=== PATIENT | male | born 1985 | race Two or more races ===

== ENCOUNTER 2019-12-26 20:36 | Emergency (ER) | payer SELFPAY ==
[~2019-12-26] VITALS: Ht 175.3 cm; Wt 81.8 kg
[2019-12-26 22:05] LABS: BILIRUBIN,URINE NEGATIVE (NEG); CLARITY,URINE CLOUDY; COLOR,URINE YELLOW; NITRITE,URINE NEGATIVE (NEG); PH,URINE 7.5 (<5.0-8.0); PROTEIN,URINE 30 mg/dL (NEG-TRACE)
[2019-12-26 22:06] LABS: BASO # 0.1 x10^3/uL (0.0-0.2); BASO % 1 % (0-3); EOS # 0.2 x10^3/uL (0.0-0.7); EOS % 3 % (0-3); HEMATOCRIT 48.9 % (39.0-53.0); LYMPH # 2.6 x10^3/uL (1.0-4.8); LYMPH % 37 % (24-48); MEAN CORPUSCULAR HEMOGLOBIN 30 pg (25-35); MEAN CORPUSCULAR HGB CONC 35 g/dL (31-37); MEAN CORPUSCULAR VOLUME 86 fL (79-100); MONO # 0.4 x10^3/uL (0.0-1.1); MONO % 6 % (0-9); NEUT # 3.6 x10^3/uL (1.8-7.7); NEUT % 52 % (31-73); PLATELET COUNT 275 x10^3/uL (140-400); RED BLOOD COUNT 5.72 x10^6/uL (4.30-5.70); RED CELL DISTRIBUTION WIDTH 13.3 % (11.5-14.5); WHITE BLOOD COUNT 6.9 x10^3/uL (4.0-11.0)
[2019-12-26 22:13] LABS: AMPHETAMINE/METHAMPHETAMINE NEG (NEG); BARBITURATES NEG (NEG); BENZODIAZEPINES NEG (NEG); CANNABINOIDS NEG (NEG); COCAINE POS (NEG); METHADONE NEG (NEG); OPIATES NEG (NEG); PHENCYCLIDINE NEG (NEG)
[2019-12-26 22:15] LABS: AMORPHOUS SEDIMENT,UR PRESENT /HPF; BACTERIA,URINE FEW /HPF (0-FEW); SQUAMOUS EPITHELIAL CELL,UR FEW /LPF
[2019-12-26 22:15] LABS: CALCIUM 8.1 mg/dL (8.5-10.1); CREATININE 0.9 mg/dL (0.7-1.3); POTASSIUM 3.5 mmol/L (3.5-5.1)
[2019-12-26] MEDS ORDERED: THIAMINE 100 MG TABLET. PO ONE (22:15)
[2019-12-26] MEDS ORDERED: MULTIVIT INFUSN,ADULT 4,VIT K 10 ML, FOLIC ACID INJ 1 MG in IV NORMAL SALINE 1000ML BAG... IV ONE (22:15)
[2019-12-26 22:21] LABS: ALBUMIN/GLOBULIN RATIO 1.2 (1.0-1.7); MAGNESIUM 2.1 mg/dL (1.8-2.4); TOTAL BILIRUBIN 0.8 mg/dL (0.2-1.0); TOTAL PROTEIN 7.4 g/dL (6.4-8.2)
--- NOTE | 2019-12-26 22:45 | PHYS DOC ---
Past Medical History Past Medical History: Alcoholism Past Surgical History: No Surgical History Smoking Status: Never Smoker Alcohol Use: Heavy General Adult EDM: Chief Complaint: ALCOHOL INTOXICATION HPI: HPI: Patient is a 34-year-old male who presents to the emergency department tonight stating he is highly intoxicated after drinking 2 bottles of tequila today. He states he is doing this because he is depressed and has contemplated harming himself. He states he will drink himself to . He denies any other illicit drug. He will not elaborate to me on exactly why he is so depressed. [] Review of Systems: Review of Systems: Constitutional: Denies fever or chills. [] Eyes: Denies change in visual acuity. [] HENT: Denies nasal congestion or sore throat. [] Respiratory: Denies cough or shortness of breath. [] Cardiovascular: Denies chest pain or edema. [] GI: Denies abdominal pain, nausea, vomiting, bloody stools or diarrhea. [] : Denies dysuria. [] Musculoskeletal: Denies back pain or joint pain. [] Integument: Denies rash. [] Neurologic: Denies headache, focal weakness or sensory changes. [] Endocrine: Denies polyuria or polydipsia. [] Lymphatic: Denies swollen glands. [] Psychiatric: Reports depression [] Heart Score: Risk Factors: Risk Factors: DM, Current or recent (<one month) smoker, HTN, HLP, family history of CAD, obesity. Risk Scores: Score 0 - 3: 2.5% MACE over next 6 weeks - Discharge Home Score 4 - 6: 20.3% MACE over next 6 weeks - Admit for Clinical Observation Score 7 - 10: 72.7% MACE over next 6 weeks - Early Invasive Strategies Current Medications: Current Medications Medications (Trade) Dose Ordered Sig/Karen Start Time Stop Time Status Last Admin Dose Admin Multivitamins 10 ml/Folic Acid 1 mg/Sodium Chloride 1,010.2 ml @ 999.099 mls/hr 1X ONCE 12/26/19 22:15 12/26/19 23:15 12/26/19 22:24 999.099 MLS/HR Thiamine Mononitrate (Vitamin B-1) 100 mg 1X ONCE 12/26/19 22:15 12/26/19 22:16 DC 12/26/19 22:24 100 MG Allergies: Allergies: Allergies Coded Allergies Type Severity Reaction Last Updated Verified No Known Drug Allergies 12/26/19 No Physical Exam: PE: Constitutional: Well developed, well nourished, highly intoxicated [] HENT: Normocephalic, atraumatic, bilateral external ears normal, oropharynx moist, no oral exudates, nose normal. [] Eyes: PERRLA, EOMI, conjunctiva normal, no discharge. [] Neck: Normal range of motion, no tenderness, supple, no stridor. [] Cardiovascular:Heart rate regular rhythm, no murmur [] Lungs & Thorax: Bilateral breath sounds clear to auscultation [] Abdomen: Bowel sounds normal, soft, no tenderness, no masses, no pulsatile masses. [] Skin: Warm, dry, no erythema, no rash. [] Back: No tenderness, no CVA tenderness. [] Extremities: No tenderness, no cyanosis, no clubbing, ROM intact, no edema. [] Neurologic: Alert and oriented X 3, normal motor function, normal sensory function, no focal deficits noted. [] Psychologic: Depressed affect. [] Current Patient Data: Labs: Laboratory Tests Test 12/26/19 21:05 12/26/19 21:45 White Blood Count 6.9 x10^3/uL (4.0-11.0) Red Blood Count 5.72 x10^6/uL (4.30-5.70) H Hemoglobin 17.0 g/dL (13.0-17.5) Hematocrit 48.9 % (39.0-53.0) Mean Corpuscular Volume 86 fL (79-100) Mean Corpuscular Hemoglobin 30 pg (25-35) Mean Corpuscular Hemoglobin Concent 35 g/dL (31-37) Red Cell Distribution Width 13.3 % (11.5-14.5) Platelet Count 275 x10^3/uL (140-400) Neutrophils (%) (Auto) 52 % (31-73) Lymphocytes (%) (Auto) 37 % (24-48) Monocytes (%) (Auto) 6 % (0-9) Eosinophils (%) (Auto) 3 % (0-3) Basophils (%) (Auto) 1 % (0-3) Neutrophils # (Auto) 3.6 x10^3/uL (1.8-7.7) Lymphocytes # (Auto) 2.6 x10^3/uL (1.0-4.8) Monocytes # (Auto) 0.4 x10^3/uL (0.0-1.1) Eosinophils # (Auto) 0.2 x10^3/uL (0.0-0.7) Basophils # (Auto) 0.1 x10^3/uL (0.0-0.2) Sodium Level 144 mmol/L (136-145) Potassium Level 3.5 mmol/L (3.5-5.1) Chloride Level 101 mmol/L (98-107) Carbon Dioxide Level 23 mmol/L (21-32) Anion Gap 20 (6-14) H Blood Urea Nitrogen 12 mg/dL (8-26) Creatinine 0.9 mg/dL (0.7-1.3) Estimated GFR (Cockcroft-Gault) 96.0 BUN/Creatinine Ratio 13 (6-20) Glucose Level 85 mg/dL (70-99) Calcium Level 8.1 mg/dL (8.5-10.1) L Magnesium Level 2.1 mg/dL (1.8-2.4) Total Bilirubin 0.8 mg/dL (0.2-1.0) Aspartate Amino Transferase (AST) 32 U/L (15-37) Alanine Aminotransferase (ALT) 36 U/L (16-63) Alkaline Phosphatase 80 U/L (46-116) Total Protein 7.4 g/dL (6.4-8.2) Albumin 4.0 g/dL (3.4-5.0) Albumin/Globulin Ratio 1.2 (1.0-1.7) Ethyl Alcohol Level 249 mg/dL (0-10) H Urine Collection Type Void Urine Color Yellow Urine Clarity Cloudy Urine pH 7.5 (<5.0-8.0) Urine Specific [place] 1.020 (1.000-1.030) Urine Protein 30 mg/dL (NEG-TRACE) Urine Glucose (UA) Negative mg/dL (NEG) Urine Ketones (Stick) Trace mg/dL (NEG) Urine Blood Negative (NEG) Urine Nitrite Negative (NEG) Urine Bilirubin Negative (NEG) Urine Urobilinogen Dipstick 1.0 mg/dL (0.2 mg/dL) Urine Leukocyte Esterase Negative (NEG) Urine RBC 1-2 /HPF (0-2) Urine WBC 1-4 /HPF (0-4) Urine Squamous Epithelial Cells Few /LPF Urine Amorphous Sediment Present /HPF Urine Bacteria Few /HPF (0-FEW) Urine Mucus Slight /LPF Urine Opiates Screen Neg (NEG) Urine Methadone Screen Neg (NEG) Urine Barbiturates Neg (NEG) Urine Phencyclidine Screen Neg (NEG) Urine Amphetamine/Methamphetamine Neg (NEG) Urine Benzodiazepines Screen Neg (NEG) Urine Cocaine Screen Pos (NEG) Urine Cannabinoids Screen Neg (NEG) Urine Ethyl Alcohol Pos (NEG) Laboratory Tests 12/26/19 21:05 Laboratory Tests 12/26/19 21:05 Vital Signs: Vital Signs Date Time Temp Pulse Resp B/P (MAP) Pulse Ox O2 Delivery O2 Flow Rate FiO2 12/26/19 20:53 98.4 97 20 124/90 (101) 98 Room Air 98.4 EKG: EKG: [] Radiology/Procedures: Radiology/Procedures: [] Course & Med Decision Making: Course & Med Decision Making Pertinent Labs and Imaging studies reviewed. (See chart for details) [ED course: Evaluation reveals a 34-year-old intoxicated male who was depressed. Psychiatric assessment team evaluated him and did not believe he was at risk for suicide. Will give him some out patient resources] Yoel Disclaimer: Yoel Disclaimer: This electronic medical record was generated, in whole or in part, using a voice recognition dictation system. Departure Departure Impression: Primary Impression: Alcohol intoxication Qualified Codes: F10.920 - Alcohol use, unspecified with intoxication, uncomplicated Disposition: 01 HOME, SELF-CARE Condition: IMPROVED Referrals: NO PCP (PCP) Patient Instructions: Alcohol Intoxication, Alcohol Problems Additional Instructions: Return to the emergency department with any new or concerning symptoms JOEL HAMLIN DO December 26, 2019 22:45
[2019-12-27 00:17] VITALS: BP 127/87
== END 2019-12-27 00:35 | disposition home or self-care (01) ==
LOC: ER 20:36
DX: F10.229 Alcohol dependence with intoxication, unspecified (principal); Y90.8 Blood alcohol level of 240 mg/100 ml or more; F32.9 Major depressive disorder, single episode, unspecified
CPT/HCPCS: 36415; 80053; 80307; 81001; 83735; 85025; 96365; 96366; 99285; G0480; J3490; J7030

== ENCOUNTER 2020-03-19 02:45 | Inpatient (IN) | payer SELFPAY ==
[~2020-03-19] VITALS: Ht 180.3 cm; Wt 79.2 kg
[2020-03-19] MEDS ORDERED: KETOROLAC 30 MG/ML VIAL. ONE (03:37)
[2020-03-19] MEDS ORDERED: METOCLOPRAMIDE HCL 10 MG/2 ML VIAL. ONE (03:37)
[2020-03-19] MEDS ORDERED: ONDANSETRON PF 4 MG/2 ML VIAL. IV PRN (06:30)
[2020-03-19] MEDS ORDERED: MULTIVIT INFUSN,ADULT 4,VIT K 10 ML, THIAMINE INJ 100 MG, FOLIC ACID INJ 1 MG in IV NOR... IV ONE (07:00)
[2020-03-19] MEDS ORDERED: SODIUM BICARB ADULT 8.4% 50 MEQ/50 ML DISP.SYRIN. ONE (07:00)
[2020-03-19 07:02] LABS: BASE EXCESS ABG -17 mmol/L (-3-3); HCO3 ABG 9 mmol/L (21-28); PCO2 ABG 25 mmHg (35-46); PO2 ABG 91 mmHg (85-108); SAT O2 ABG 97 % (92-99)
[2020-03-19] MEDS ORDERED: SODIUM BICARB ADULT 8.4% 50 MEQ/50 ML DISP.SYRIN. IV ONE (07:30)
[2020-03-19 07:56] VITALS: BP 124/85
[2020-03-19 09:47] LABS: CALCIUM 7.5 mg/dL (8.5-10.1); CREATININE 1.2 mg/dL (0.7-1.3); GFR 68.9
--- NOTE | 2020-03-19 09:56 | NUR ---
SS following for discharge planning. SS reviewed pt chart and discussed with pt RN. Pt is from home and is currently on room air. PAT team referral made for ETOH. Pt is self pay. SS will continue to follow for discharge planning.
[2020-03-19 10:51] LABS: TOTAL PROTEIN 9.4 g/dL (6.4-8.2)
[2020-03-19 10:52] LABS: ALBUMIN 4.8 g/dL (3.4-5.0); CREATININE 1.6 mg/dL (0.7-1.3); GFR 49.4; POTASSIUM 4.5 mmol/L (3.5-5.1); TOTAL BILIRUBIN 0.2 mg/dL (0.2-1.0)
[2020-03-19 10:54] LABS: DIRECT BILIRUBIN 0.1 mg/dL (0.0-0.2)
[2020-03-19 11:00] VITALS: BP 116/63
[2020-03-19 11:43] LABS: BASO % 0 % (0-3); EOS % 0 % (0-3); HEMATOCRIT 54.5 % (39.0-53.0); HEMOGLOBIN 17.7 g/dL (13.0-17.5); LYMPH # 0.9 x10^3/uL (1.0-4.8); LYMPH % 5 % (24-48); MEAN CORPUSCULAR HEMOGLOBIN 30 pg (25-35); MEAN CORPUSCULAR HGB CONC 33 g/dL (31-37); MEAN CORPUSCULAR VOLUME 92 fL (79-100); MONO # 1.1 x10^3/uL (0.0-1.1); MONO % 5 % (0-9); NEUT # 18.6 x10^3/uL (1.8-7.7); NEUT % 90 % (31-73); PLATELET COUNT 414 x10^3/uL (140-400); RED BLOOD COUNT 5.91 x10^6/uL (4.30-5.70); RED CELL DISTRIBUTION WIDTH 14.9 % (11.5-14.5); WHITE BLOOD COUNT 20.6 x10^3/uL (4.0-11.0)
[2020-03-19 15:00] VITALS: BP 120/62
--- NOTE | 2020-03-19 15:00 | PDOC1 ---
History and Physical Date of Admission Date of Admission 03/19/2020 Identification/Chief Complaint Chief Complaint I drank too much Source Source: Chart review, Patient History of Present Illness History of Present Illness Patient is a 34-year-old gentleman that decided to have a democrat prior to coming to the emergency department and unfortunately drank too much alcohol. The patient denies drinking excessively on a regular basis but this time around apparently in order to celebrate his new apartment he drank 2 bottles of tequila. The patient after the ingestion felt quite sick and ill and just started vomiting on several occasions no blood no hematemesis gastric content only and the patient due to inability to have proper oral intake decided to come to the emergency department for the uncontrollable emesis. Laboratory data was quite abnormal reason why we were asked to admit the patient due to any metabolic acidosis with high anion gap found on his chemistry. The patient was started on IV fluids he did not have hemodynamic instability throughout his hospital stay in the ER documentation there was a report that he was doing this because he is depressed and had contemplated harming himself nevertheless the patient was asking this is not the case. The patient denies suicidal ideation no suicidal intent and nursing staff was at bedside with me when I was interviewing the patient as well. He is in good spirits and hoping to be dismissed later in the day No headache no blurred vision no dysphagia odynophagia no chest pain no neurological deficits were exhibited no urinary symptoms no abdominal pain no other complaints voiced Past Medical History Past Medical History No past medical history Past Surgical History Past Surgical History No past surgical history Family History Family History: No Significant, Other (Reviewed and found negative noncontributory) Social History Smoke: No ALCOHOL: occassional Drugs: None Current Medications Current Medications Current Medications Medications (Trade) Dose Ordered Sig/Karen Start Time Stop Time Status Last Admin Dose Admin Multivitamins 10 ml/Thiamine HCl 100 mg/Folic Acid 1 mg/Sodium Chloride 1,011.2 ml @ 150 mls/ hr 1X ONCE 03/19/20 07:00 03/19/20 13:44 DC 03/19/20 06:38 150 MLS/HR Ondansetron HCl (Zofran) 4 mg PRN Q8HRS PRN 03/19/20 06:30 03/20/20 06:29 03/19/20 09:44 4 MG Sodium Bicarbonate (Sodium Bicarb Adult 8.4% Syr) 50 meq 1X ONCE 03/19/20 07:30 03/19/20 07:31 DC 03/19/20 07:03 50 MEQ Allergies Allergies Allergies Coded Allergies Type Severity Reaction Last Updated Verified No Known Drug Allergies 12/26/19 No ROS Review of System CONSTITUTIONAL: No fever or chills EYES: No recent changes SKIN: No rash or itching CARDIOVASCULAR: No chest pain, syncope, palpitations, or edema RESPIRATORY: No SOB or cough GASTROINTESTINAL: No nausea, vomiting or abdominal pain NEUROLOGICAL: No headaches or weakness ENDOCRINE: No cold or heat intolerance GENITOURINARY: No urgency or frequency of urination MUSCULOSKELETAL: No back pain or joint pain LYMPHATICS: No enlarged lymph nodes PSYCHIATRIC: No anxiety or depression Physical Exam Physical Exam GEN.: No apparent distress. Alert and oriented. HEENT: Head is normocephalic, atraumatic NECK: Supple. LUNGS: Clear to auscultation. HEART: RRR, S1, S2 present. Peripheral pulses intact ABDOMEN: Soft, nontender. Positive bowel sounds. EXTREMITIES: Without any cyanosis. NEUROLOGIC: Normal speech, normal tone PSYCHIATRIC: Normal affect, normal mood. SKIN: No ulcerations Vitals Vitals Vital Signs Date Time Temp Pulse Resp B/P (MAP) Pulse Ox O2 Delivery O2 Flow Rate FiO2 03/19/20 11:00 98.4 114 20 116/63 (80) 98 Room Air 98.4 Labs Labs Laboratory Tests Test 03/19/20 03:30 03/19/20 06:11 03/19/20 08:45 White Blood Count 20.6 x10^3/uL (4.0-11.0) Red Blood Count 5.91 x10^6/uL (4.30-5.70) Hemoglobin 17.7 g/dL (13.0-17.5) Hematocrit 54.5 % (39.0-53.0) Mean Corpuscular Volume 92 fL (79-100) Mean Corpuscular Hemoglobin 30 pg (25-35) Mean Corpuscular Hemoglobin Concent 33 g/dL (31-37) Red Cell Distribution Width 14.9 % (11.5-14.5) Platelet Count 414 x10^3/uL (140-400) Neutrophils (%) (Auto) 90 % (31-73) Lymphocytes (%) (Auto) 5 % (24-48) Monocytes (%) (Auto) 5 % (0-9) Eosinophils (%) (Auto) 0 % (0-3) Basophils (%) (Auto) 0 % (0-3) Neutrophils # (Auto) 18.6 x10^3/uL (1.8-7.7) Lymphocytes # (Auto) 0.9 x10^3/uL (1.0-4.8) Monocytes # (Auto) 1.1 x10^3/uL (0.0-1.1) Eosinophils # (Auto) 0.0 x10^3/uL (0.0-0.7) Basophils # (Auto) 0.0 x10^3/uL (0.0-0.2) Sodium Level 142 mmol/L (136-145) 135 mmol/L (136-145) Potassium Level 4.5 mmol/L (3.5-5.1) 5.0 mmol/L (3.5-5.1) Chloride Level 100 mmol/L (98-107) 102 mmol/L (98-107) Carbon Dioxide Level 9 mmol/L (21-32) 17 mmol/L (21-32) Anion Gap 33 (6-14) 16 (6-14) Blood Urea Nitrogen 21 mg/dL (8-26) 16 mg/dL (8-26) Creatinine 1.6 mg/dL (0.7-1.3) 1.2 mg/dL (0.7-1.3) Estimated GFR (Cockcroft-Gault) 49.4 68.9 Glucose Level 67 mg/dL (70-99) 179 mg/dL (70-99) Calcium Level 9.0 mg/dL (8.5-10.1) 7.5 mg/dL (8.5-10.1) Total Bilirubin 0.2 mg/dL (0.2-1.0) Direct Bilirubin 0.1 mg/dL (0.0-0.2) Aspartate Amino Transf (AST/SGOT) 39 U/L (15-37) Alanine Aminotransferase (ALT/SGPT) 38 U/L (16-63) Alkaline Phosphatase 102 U/L (46-116) Total Protein 9.4 g/dL (6.4-8.2) Albumin 4.8 g/dL (3.4-5.0) Lipase 41 U/L (73-393) Ethyl Alcohol Level 56 mg/dL (0-10) O2 Saturation 97 % (92-99) Arterial Blood pH 7.19 (7.35-7.45) Arterial Blood pCO2 at Patient Temp 25 mmHg (35-46) Arterial Blood pO2 at Patient Temp 91 mmHg (85-108) Arterial Blood HCO3 9 mmol/L (21-28) Arterial Blood Base Excess -17 mmol/L (-3-3) Laboratory Tests Test 03/19/20 03:30 03/19/20 06:11 03/19/20 08:45 White Blood Count 20.6 x10^3/uL (4.0-11.0) Red Blood Count 5.91 x10^6/uL (4.30-5.70) Hemoglobin 17.7 g/dL (13.0-17.5) Hematocrit 54.5 % (39.0-53.0) Mean Corpuscular Volume 92 fL (79-100) Mean Corpuscular Hemoglobin 30 pg (25-35) Mean Corpuscular Hemoglobin Concent 33 g/dL (31-37) Red Cell Distribution Width 14.9 % (11.5-14.5) Platelet Count 414 x10^3/uL (140-400) Neutrophils (%) (Auto) 90 % (31-73) Lymphocytes (%) (Auto) 5 % (24-48) Monocytes (%) (Auto) 5 % (0-9) Eosinophils (%) (Auto) 0 % (0-3) Basophils (%) (Auto) 0 % (0-3) Neutrophils # (Auto) 18.6 x10^3/uL (1.8-7.7) Lymphocytes # (Auto) 0.9 x10^3/uL (1.0-4.8) Monocytes # (Auto) 1.1 x10^3/uL (0.0-1.1) Eosinophils # (Auto) 0.0 x10^3/uL (0.0-0.7) Basophils # (Auto) 0.0 x10^3/uL (0.0-0.2) Sodium Level 142 mmol/L (136-145) 135 mmol/L (136-145) Potassium Level 4.5 mmol/L (3.5-5.1) 5.0 mmol/L (3.5-5.1) Chloride Level 100 mmol/L (98-107) 102 mmol/L (98-107) Carbon Dioxide Level 9 mmol/L (21-32) 17 mmol/L (21-32) Anion Gap 33 (6-14) 16 (6-14) Blood Urea Nitrogen 21 mg/dL (8-26) 16 mg/dL (8-26) Creatinine 1.6 mg/dL (0.7-1.3) 1.2 mg/dL (0.7-1.3) Estimated GFR (Cockcroft-Gault) 49.4 68.9 Glucose Level 67 mg/dL (70-99) 179 mg/dL (70-99) Calcium Level 9.0 mg/dL (8.5-10.1) 7.5 mg/dL (8.5-10.1) Total Bilirubin 0.2 mg/dL (0.2-1.0) Direct Bilirubin 0.1 mg/dL (0.0-0.2) Aspartate Amino Transf (AST/SGOT) 39 U/L (15-37) Alanine Aminotransferase (ALT/SGPT) 38 U/L (16-63) Alkaline Phosphatase 102 U/L (46-116) Total Protein 9.4 g/dL (6.4-8.2) Albumin 4.8 g/dL (3.4-5.0) Lipase 41 U/L (73-393) Ethyl Alcohol Level 56 mg/dL (0-10) O2 Saturation 97 % (92-99) Arterial Blood pH 7.19 (7.35-7.45) Arterial Blood pCO2 at Patient Temp 25 mmHg (35-46) Arterial Blood pO2 at Patient Temp 91 mmHg (85-108) Arterial Blood HCO3 9 mmol/L (21-28) Arterial Blood Base Excess -17 mmol/L (-3-3) VTE Prophylaxis Ordered VTE Prophylaxis Devices: Yes VTE Pharmacological Prophylaxi: Yes Assessment/Plan Assessment/Plan High anion gap metabolic acidosis Uncontrollable emesis Reactive leukocytosis Moderate dehydration Hyperglycemia which may be reactive Plan For repeat labs prior to dismissal If laboratory data is better he will be discharged later in the day Finish banana bag Encourage oral intake Further recommendations based on the clinical course Justicifation of Admission Dx: Justifications for Admission: Justification of Admission Dx: Yes (Severe electrolyte disturbances) JANNETTE VILLA MD Mar 19, 2020 15:00
[2020-03-19 15:18] LABS: BASO % 0 % (0-3); EOS % 0 % (0-3); HEMATOCRIT 42.3 % (39.0-53.0); HEMOGLOBIN 14.4 g/dL (13.0-17.5); LYMPH # 1.2 x10^3/uL (1.0-4.8); LYMPH % 8 % (24-48); MEAN CORPUSCULAR HEMOGLOBIN 30 pg (25-35); MEAN CORPUSCULAR HGB CONC 34 g/dL (31-37); MEAN CORPUSCULAR VOLUME 88 fL (79-100); MONO # 1.7 x10^3/uL (0.0-1.1); MONO % 12 % (0-9); NEUT # 11.3 x10^3/uL (1.8-7.7); NEUT % 80 % (31-73); PLATELET COUNT 301 x10^3/uL (140-400); RED BLOOD COUNT 4.79 x10^6/uL (4.30-5.70); RED CELL DISTRIBUTION WIDTH 14.2 % (11.5-14.5); WHITE BLOOD COUNT 14.2 x10^3/uL (4.0-11.0)
[2020-03-19 15:31] LABS: CALCIUM 8.4 mg/dL (8.5-10.1); POTASSIUM 4.3 mmol/L (3.5-5.1)
[2020-03-19 19:25] VITALS: BP 126/68
--- NOTE | 2020-03-19 21:00 | PDOC3 ---
Discharge Summary Visit Information Date of Admission: Mar 19, 2020 Date of Discharge: Mar 19, 2020 Admitting Diagnosis Comment: acute alcoholic intoxication metabolic acidosis leukocytosis Final Diagnosis metabolic acidosis resolved acute alcohol intoxication reactive leukocytosis Brief Hospital Course Allergies Allergies Coded Allergies Type Severity Reaction Last Updated Verified No Known Drug Allergies 12/26/19 No Vital Signs Vital Signs Date Time Temp Pulse Resp B/P (MAP) Pulse Ox O2 Delivery O2 Flow Rate FiO2 03/19/20 15:00 98.4 119 20 120/62 (81) 99 Room Air 98.4 Lab Results Laboratory Tests Test 03/19/20 03:30 03/19/20 06:11 03/19/20 08:45 03/19/20 15:10 White Blood Count 20.6 x10^3/uL (4.0-11.0) 14.2 x10^3/uL (4.0-11.0) Red Blood Count 5.91 x10^6/uL (4.30-5.70) 4.79 x10^6/uL (4.30-5.70) Hemoglobin 17.7 g/dL (13.0-17.5) 14.4 g/dL (13.0-17.5) Hematocrit 54.5 % (39.0-53.0) 42.3 % (39.0-53.0) Mean Corpuscular Volume 92 fL (79-100) 88 fL (79-100) Mean Corpuscular Hemoglobin 30 pg (25-35) 30 pg (25-35) Mean Corpuscular Hemoglobin Concent 33 g/dL (31-37) 34 g/dL (31-37) Red Cell Distribution Width 14.9 % (11.5-14.5) 14.2 % (11.5-14.5) Platelet Count 414 x10^3/uL (140-400) 301 x10^3/uL (140-400) Neutrophils (%) (Auto) 90 % (31-73) 80 % (31-73) Lymphocytes (%) (Auto) 5 % (24-48) 8 % (24-48) Monocytes (%) (Auto) 5 % (0-9) 12 % (0-9) Eosinophils (%) (Auto) 0 % (0-3) 0 % (0-3) Basophils (%) (Auto) 0 % (0-3) 0 % (0-3) Neutrophils # (Auto) 18.6 x10^3/uL (1.8-7.7) 11.3 x10^3/uL (1.8-7.7) Lymphocytes # (Auto) 0.9 x10^3/uL (1.0-4.8) 1.2 x10^3/uL (1.0-4.8) Monocytes # (Auto) 1.1 x10^3/uL (0.0-1.1) 1.7 x10^3/uL (0.0-1.1) Eosinophils # (Auto) 0.0 x10^3/uL (0.0-0.7) 0.0 x10^3/uL (0.0-0.7) Basophils # (Auto) 0.0 x10^3/uL (0.0-0.2) 0.0 x10^3/uL (0.0-0.2) Sodium Level 142 mmol/L (136-145) 135 mmol/L (136-145) 137 mmol/L (136-145) Potassium Level 4.5 mmol/L (3.5-5.1) 5.0 mmol/L (3.5-5.1) 4.3 mmol/L (3.5-5.1) Chloride Level 100 mmol/L (98-107) 102 mmol/L (98-107) 103 mmol/L (98-107) Carbon Dioxide Level 9 mmol/L (21-32) 17 mmol/L (21-32) 24 mmol/L (21-32) Anion Gap 33 (6-14) 16 (6-14) 10 (6-14) Blood Urea Nitrogen 21 mg/dL (8-26) 16 mg/dL (8-26) 18 mg/dL (8-26) Creatinine 1.6 mg/dL (0.7-1.3) 1.2 mg/dL (0.7-1.3) 1.0 mg/dL (0.7-1.3) Estimated GFR (Cockcroft-Gault) 49.4 68.9 85.0 Glucose Level 67 mg/dL (70-99) 179 mg/dL (70-99) 143 mg/dL (70-99) Calcium Level 9.0 mg/dL (8.5-10.1) 7.5 mg/dL (8.5-10.1) 8.4 mg/dL (8.5-10.1) Total Bilirubin 0.2 mg/dL (0.2-1.0) Direct Bilirubin 0.1 mg/dL (0.0-0.2) Aspartate Amino Transf (AST/SGOT) 39 U/L (15-37) Alanine Aminotransferase (ALT/SGPT) 38 U/L (16-63) Alkaline Phosphatase 102 U/L (46-116) Total Protein 9.4 g/dL (6.4-8.2) Albumin 4.8 g/dL (3.4-5.0) Lipase 41 U/L (73-393) Ethyl Alcohol Level 56 mg/dL (0-10) O2 Saturation 97 % (92-99) Arterial Blood pH 7.19 (7.35-7.45) Arterial Blood pCO2 at Patient Temp 25 mmHg (35-46) Arterial Blood pO2 at Patient Temp 91 mmHg (85-108) Arterial Blood HCO3 9 mmol/L (21-28) Arterial Blood Base Excess -17 mmol/L (-3-3) Magnesium Level 1.9 mg/dL (1.8-2.4) Laboratory Tests Test 03/19/20 03:30 03/19/20 06:11 03/19/20 08:45 03/19/20 15:10 White Blood Count 20.6 x10^3/uL (4.0-11.0) 14.2 x10^3/uL (4.0-11.0) Red Blood Count 5.91 x10^6/uL (4.30-5.70) 4.79 x10^6/uL (4.30-5.70) Hemoglobin 17.7 g/dL (13.0-17.5) 14.4 g/dL (13.0-17.5) Hematocrit 54.5 % (39.0-53.0) 42.3 % (39.0-53.0) Mean Corpuscular Volume 92 fL (79-100) 88 fL (79-100) Mean Corpuscular Hemoglobin 30 pg (25-35) 30 pg (25-35) Mean Corpuscular Hemoglobin Concent 33 g/dL (31-37) 34 g/dL (31-37) Red Cell Distribution Width 14.9 % (11.5-14.5) 14.2 % (11.5-14.5) Platelet Count 414 x10^3/uL (140-400) 301 x10^3/uL (140-400) Neutrophils (%) (Auto) 90 % (31-73) 80 % (31-73) Lymphocytes (%) (Auto) 5 % (24-48) 8 % (24-48) Monocytes (%) (Auto) 5 % (0-9) 12 % (0-9) Eosinophils (%) (Auto) 0 % (0-3) 0 % (0-3) Basophils (%) (Auto) 0 % (0-3) 0 % (0-3) Neutrophils # (Auto) 18.6 x10^3/uL (1.8-7.7) 11.3 x10^3/uL (1.8-7.7) Lymphocytes # (Auto) 0.9 x10^3/uL (1.0-4.8) 1.2 x10^3/uL (1.0-4.8) Monocytes # (Auto) 1.1 x10^3/uL (0.0-1.1) 1.7 x10^3/uL (0.0-1.1) Eosinophils # (Auto) 0.0 x10^3/uL (0.0-0.7) 0.0 x10^3/uL (0.0-0.7) Basophils # (Auto) 0.0 x10^3/uL (0.0-0.2) 0.0 x10^3/uL (0.0-0.2) Sodium Level 142 mmol/L (136-145) 135 mmol/L (136-145) 137 mmol/L (136-145) Potassium Level 4.5 mmol/L (3.5-5.1) 5.0 mmol/L (3.5-5.1) 4.3 mmol/L (3.5-5.1) Chloride Level 100 mmol/L (98-107) 102 mmol/L (98-107) 103 mmol/L (98-107) Carbon Dioxide Level 9 mmol/L (21-32) 17 mmol/L (21-32) 24 mmol/L (21-32) Anion Gap 33 (6-14) 16 (6-14) 10 (6-14) Blood Urea Nitrogen 21 mg/dL (8-26) 16 mg/dL (8-26) 18 mg/dL (8-26) Creatinine 1.6 mg/dL (0.7-1.3) 1.2 mg/dL (0.7-1.3) 1.0 mg/dL (0.7-1.3) Estimated GFR (Cockcroft-Gault) 49.4 68.9 85.0 Glucose Level 67 mg/dL (70-99) 179 mg/dL (70-99) 143 mg/dL (70-99) Calcium Level 9.0 mg/dL (8.5-10.1) 7.5 mg/dL (8.5-10.1) 8.4 mg/dL (8.5-10.1) Total Bilirubin 0.2 mg/dL (0.2-1.0) Direct Bilirubin 0.1 mg/dL (0.0-0.2) Aspartate Amino Transf (AST/SGOT) 39 U/L (15-37) Alanine Aminotransferase (ALT/SGPT) 38 U/L (16-63) Alkaline Phosphatase 102 U/L (46-116) Total Protein 9.4 g/dL (6.4-8.2) Albumin 4.8 g/dL (3.4-5.0) Lipase 41 U/L (73-393) Ethyl Alcohol Level 56 mg/dL (0-10) O2 Saturation 97 % (92-99) Arterial Blood pH 7.19 (7.35-7.45) Arterial Blood pCO2 at Patient Temp 25 mmHg (35-46) Arterial Blood pO2 at Patient Temp 91 mmHg (85-108) Arterial Blood HCO3 9 mmol/L (21-28) Arterial Blood Base Excess -17 mmol/L (-3-3) Magnesium Level 1.9 mg/dL (1.8-2.4) Brief Hospital Course Mr. Min is a 34 old male who presented with severe electrolyte disturbances and was admitted for evaluation of his metabolic derrangement. It seems to have resolved with iv fluid resuscitation, patient as per er physician note had intentions of harming himself but this was ruled out on the day of the discharge, nursing staff was present during my second visit to establish a safe plan for discharge. NO acute events during his brief hospital stay, counseling regarding the noxious effects of alcohol on his health was provided prior to discharge. Discharge Information Condition at Discharge: Improved Follow Up: Weeks Disposition/Orders: D/C to Home No Active Prescriptions or Reported Meds Justicifation of Admission Dx: Justifications for Admission: Justification of Admission Dx: Yes (Severe electrolyte disturbances) JANNETTE VILLA MD Mar 19, 2020 21:00
[2020-03-19 23:00] VITALS: BP 149/68
[2020-03-20 03:00] VITALS: BP 122/58
[2020-03-20 06:26] LABS: BASO # 0.1 x10^3/uL (0.0-0.2); BASO % 1 % (0-3); EOS % 0 % (0-3); LYMPH # 1.6 x10^3/uL (1.0-4.8); LYMPH % 18 % (24-48); MEAN CORPUSCULAR HEMOGLOBIN 31 pg (25-35); MEAN CORPUSCULAR HGB CONC 35 g/dL (31-37); MEAN CORPUSCULAR VOLUME 88 fL (79-100); MONO # 0.6 x10^3/uL (0.0-1.1); MONO % 7 % (0-9); NEUT # 6.8 x10^3/uL (1.8-7.7); NEUT % 75 % (31-73); PLATELET COUNT 268 x10^3/uL (140-400); RED CELL DISTRIBUTION WIDTH 14.3 % (11.5-14.5); WHITE BLOOD COUNT 9.1 x10^3/uL (4.0-11.0)
[2020-03-20 07:10] LABS: ALBUMIN 3.5 g/dL (3.4-5.0); ALBUMIN/GLOBULIN RATIO 1.1 (1.0-1.7); CALCIUM 8.7 mg/dL (8.5-10.1); CREATININE 0.9 mg/dL (0.7-1.3); POTASSIUM 3.8 mmol/L (3.5-5.1); TOTAL BILIRUBIN 0.8 mg/dL (0.2-1.0); TOTAL PROTEIN 6.8 g/dL (6.4-8.2)
--- NOTE | 2020-03-20 07:25 | NUR ---
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 Patient discharged home this this time home with no needs.
== END 2020-03-20 07:26 | disposition home or self-care (01) | DRG 897 ==
LOC: ER 02:45 → 2 NORTH 06:20
PROVIDERS: ADMIT Internal Medicine; ATTEND Internal Medicine
DX: F10.129 Alcohol abuse with intoxication, unspecified (principal); E87.2 Acidosis; E86.0 Dehydration; D72.828 Other elevated white blood cell count; R73.9 Hyperglycemia, unspecified; Y90.2 Blood alcohol level of 40-59 mg/100 ml
CPT/HCPCS: 36415; 36600; 80048; 80053; 80076; 82805; 83690; 83735; 85025; 96365; 96375; G0480; J2405; J3411; J3490; J7030; 99285-25; G0378

== ENCOUNTER 2020-06-05 04:03 | Emergency (ER) | payer OTHER ==
[~2020-06-05] VITALS: Ht 180.3 cm; Wt 85.0 kg
[2020-06-05 04:34] LABS: BASO % 0 % (0-3); EOS % 0 % (0-3); HEMATOCRIT 51.9 % (39.0-53.0); HEMOGLOBIN 17.6 g/dL (13.0-17.5); LYMPH # 1.2 x10^3/uL (1.0-4.8); LYMPH % 11 % (24-48); MEAN CORPUSCULAR HEMOGLOBIN 30 pg (25-35); MEAN CORPUSCULAR HGB CONC 34 g/dL (31-37); MEAN CORPUSCULAR VOLUME 89 fL (79-100); MONO # 0.6 x10^3/uL (0.0-1.1); MONO % 5 % (0-9); NEUT # 9.3 x10^3/uL (1.8-7.7); NEUT % 84 % (31-73); PLATELET COUNT 336 x10^3/uL (140-400); RED BLOOD COUNT 5.83 x10^6/uL (4.30-5.70); RED CELL DISTRIBUTION WIDTH 14.5 % (11.5-14.5); WHITE BLOOD COUNT 11.1 x10^3/uL (4.0-11.0)
[2020-06-05 04:49] LABS: ALBUMIN 4.7 g/dL (3.4-5.0); ALBUMIN/GLOBULIN RATIO 1.1 (1.0-1.7); CALCIUM 9.3 mg/dL (8.5-10.1); CREATININE 1.1 mg/dL (0.7-1.3); GFR 76.2; MAGNESIUM 2.2 mg/dL (1.8-2.4); POTASSIUM 4.6 mmol/L (3.5-5.1); TOTAL BILIRUBIN 0.5 mg/dL (0.2-1.0); TOTAL PROTEIN 8.8 g/dL (6.4-8.2)
[2020-06-05] MEDS ORDERED: IV NORMAL SALINE 1000ML BAG 1,000 ML IV ONE ×2 (05:00)
[2020-06-05] MEDS ORDERED: ONDANSETRON PF 4 MG/2 ML VIAL. IVP ONE (05:00)
--- NOTE | 2020-06-05 05:24 | PHYS DOC ---
Past Medical History Past Medical History: No Pertinent History, Alcoholism Past Surgical History: No Surgical History Smoking Status: Never Smoker Alcohol Use: Heavy General Adult EDM: Chief Complaint: NAUSEA/VOMITING/DIARRHA HPI: HPI: Patient is a 34 year old male who present to ER for evaluation of nausea vomiting since earlier this morning. Patient said he is an alcoholic, he drank a pint of Tequila yesterday afternoon, did not drink anything last night. Patient woke up this morning with nausea and vomiting, no diarrhea, no abdominal pain. Patient said he feels weak and dehydrated. Patient denies any chest pain, no cough, no fever. patient denies any abdominal pain. Review of Systems: Review of Systems: Constitutional: Denies fever or chills. [] Eyes: Denies change in visual acuity. [] HENT: Denies nasal congestion or sore throat. [] Respiratory: Denies cough or shortness of breath. [] Cardiovascular: Denies chest pain or edema. [] GI: Denies abdominal pain, positive for nausea, vomiting, no bloody stools or diarrhea. [] : Denies dysuria. [] Musculoskeletal: Denies back pain or joint pain. [] Integument: Denies rash. [] Neurologic: Denies headache, focal weakness or sensory changes. [] Endocrine: Denies polyuria or polydipsia. [] Lymphatic: Denies swollen glands. [] Psychiatric: Denies depression or anxiety. [] Heart Score: Risk Factors: Risk Factors: DM, Current or recent (<one month) smoker, HTN, HLP, family history of CAD, obesity. Risk Scores: Score 0 - 3: 2.5% MACE over next 6 weeks - Discharge Home Score 4 - 6: 20.3% MACE over next 6 weeks - Admit for Clinical Observation Score 7 - 10: 72.7% MACE over next 6 weeks - Early Invasive Strategies Current Medications: Current Medications Medications (Trade) Dose Ordered Sig/Karen Start Time Stop Time Status Last Admin Dose Admin Lorazepam (Ativan Inj) 1 mg 1X ONCE 06/05/20 05:30 06/05/20 05:31 06/05/20 05:14 1 MG Ondansetron HCl (Zofran) 8 mg 1X ONCE 06/05/20 05:00 06/05/20 05:01 DC 06/05/20 05:00 8 MG Sodium Chloride 1,000 ml @ 1,000 mls/hr 1X ONCE 06/05/20 05:00 06/05/20 05:59 06/05/20 04:57 1,000 MLS/HR Allergies: Allergies: Allergies Coded Allergies Type Severity Reaction Last Updated Verified No Known Drug Allergies 12/26/19 No Physical Exam: PE: Constitutional: Well developed, well nourished, no acute distress, non-toxic appearance. [] HENT: Normocephalic, atraumatic, bilateral external ears normal, oropharynx moist, no oral exudates, nose normal. [] Eyes: PERRLA, EOMI, conjunctiva normal, no discharge. [] Neck: Normal range of motion, no tenderness, supple, no stridor. [] Cardiovascular:Heart rate regular rhythm, no murmur [] Lungs & Thorax: Bilateral breath sounds clear to auscultation [] Abdomen: Bowel sounds normal, soft, no tenderness, no masses, no pulsatile masses. [] Skin: Warm, dry, no erythema, no rash. [] Back: No tenderness, no CVA tenderness. [] Extremities: No tenderness, no cyanosis, no clubbing, ROM intact, no edema. [] Neurologic: Alert and oriented X 3, normal motor function, normal sensory function, no focal deficits noted. [] Psychologic: Affect normal, judgement normal, mood normal. [] Current Patient Data: Labs: Laboratory Tests Test 06/05/20 04:20 White Blood Count 11.1 x10^3/uL (4.0-11.0) H Red Blood Count 5.83 x10^6/uL (4.30-5.70) H Hemoglobin 17.6 g/dL (13.0-17.5) H Hematocrit 51.9 % (39.0-53.0) Mean Corpuscular Volume 89 fL (79-100) Mean Corpuscular Hemoglobin 30 pg (25-35) Mean Corpuscular Hemoglobin Concent 34 g/dL (31-37) Red Cell Distribution Width 14.5 % (11.5-14.5) Platelet Count 336 x10^3/uL (140-400) Neutrophils (%) (Auto) 84 % (31-73) H Lymphocytes (%) (Auto) 11 % (24-48) L Monocytes (%) (Auto) 5 % (0-9) Eosinophils (%) (Auto) 0 % (0-3) Basophils (%) (Auto) 0 % (0-3) Neutrophils # (Auto) 9.3 x10^3/uL (1.8-7.7) H Lymphocytes # (Auto) 1.2 x10^3/uL (1.0-4.8) Monocytes # (Auto) 0.6 x10^3/uL (0.0-1.1) Eosinophils # (Auto) 0.0 x10^3/uL (0.0-0.7) Basophils # (Auto) 0.0 x10^3/uL (0.0-0.2) Sodium Level 140 mmol/L (136-145) Potassium Level 4.6 mmol/L (3.5-5.1) Chloride Level 99 mmol/L (98-107) Carbon Dioxide Level 12 mmol/L (21-32) L Anion Gap 29 (6-14) H Blood Urea Nitrogen 14 mg/dL (8-26) Creatinine 1.1 mg/dL (0.7-1.3) Estimated GFR (Cockcroft-Gault) 76.2 BUN/Creatinine Ratio 13 (6-20) Glucose Level 91 mg/dL (70-99) Calcium Level 9.3 mg/dL (8.5-10.1) Magnesium Level 2.2 mg/dL (1.8-2.4) Total Bilirubin 0.5 mg/dL (0.2-1.0) Aspartate Amino Transferase (AST) 51 U/L (15-37) H Alanine Aminotransferase (ALT) 55 U/L (16-63) Alkaline Phosphatase 89 U/L (46-116) Total Protein 8.8 g/dL (6.4-8.2) H Albumin 4.7 g/dL (3.4-5.0) Albumin/Globulin Ratio 1.1 (1.0-1.7) Lipase 63 U/L (73-393) L Ethyl Alcohol Level 67 mg/dL (0-10) H Laboratory Tests 06/05/20 04:20 Laboratory Tests 06/05/20 04:20 Vital Signs: Vital Signs Date Time Temp Pulse Resp B/P (MAP) Pulse Ox O2 Delivery O2 Flow Rate FiO2 06/05/20 04:15 97.5 109 20 141/87 (105) 99 Room Air 97.5 EKG: EKG: [] Radiology/Procedures: Radiology/Procedures: [] Course & Med Decision Making: Course & Med Decision Making Pertinent Labs and Imaging studies reviewed. (See chart for details) Patient is a 34-year-old male who presented to ER due to nausea vomiting. Patient is an alcoholic, he did not drink any alcohol last night. Patient did drink pint tequila yesterday afternoon. Patient was given IV fluid and IV nausea medication in the ER, he feel much better. Patient would like to go home. Patient denies any chest pain, no cough, no abdominal pain, no fever. Patient denies suicidal ideation. Dragon Disclaimer: [employer] Disclaimer: This electronic medical record was generated, in whole or in part, using a voice recognition dictation system. Departure Departure Impression: Primary Impression: Nausea & vomiting Additional Impression: Alcoholism Disposition: 01 DC HOME SELF CARE/HOMELESS Condition: IMPROVED Referrals: NO PCP (PCP) Follow-up with your family physician this week for reevaluation, consider alcohol cessation Patient Instructions: Alcohol Problems, Nausea and Vomiting Additional Instructions: Thank you for visiting our Emergency Department. We appreciate you trusting us with your care. If any additional problems come up don't hesitate to return to visit us. Please follow up with your primary care provider so they can plan additional care if needed and know about the problem that you had. If symptoms worsen come back to the Emergency Department. Any concerning symptoms that start such as chest pain, shortness of air, weakness or numbness on one side of the body, running high fevers or any other concerning symptoms return to the ER. Scripts Ondansetron Hcl (ZOFRAN) 4 Mg Tablet 1 TAB PO Q6HRS PRN for NAUSEA, #20 TAB Prov: DINESH ARGUETA DO 06/05/20 DINESH ARGUETA DO Jun 05, 2020 05:24
[2020-06-05] MEDS ORDERED: ONDA4TAB7 PO (05:56)
[2020-06-05 06:20] VITALS: BP 142/68
== END 2020-06-05 06:39 | disposition home or self-care (01) ==
LOC: ER 04:03
DX: R11.2 Nausea with vomiting, unspecified (principal); E86.0 Dehydration; R53.1 Weakness; F10.10 Alcohol abuse, uncomplicated
CPT/HCPCS: 36415; 80053; 83690; 83735; 85025; 96361; 96374; 96375; 99285; G0480; J2060; J2405; J7030

== ENCOUNTER 2020-11-11 00:56 | Emergency (ER) | payer SELFPAY ==
[~2020-11-11] VITALS: Ht 177.8 cm; Wt 86.3 kg
[~2020-11-11 00:56] MED LIST: ONDA4TAB7 PO
[2020-11-11 01:02] VITALS: BP 123/87
--- NOTE | 2020-11-11 02:37 | PHYS DOC ---
Past Medical History Past Medical History: Alcoholism Past Surgical History: No Surgical History Smoking Status: Never Smoker Alcohol Use: Heavy Drug Use: None General Adult EDM: Chief Complaint: ABDOMINAL PAIN HPI: HPI: Patient is a 35 year old L presents to the emergency department with nausea, vomiting, and abdominal pain radiating to his back. Patient claims that this began this afternoon when he had lunch which was seafood soup with multiple shots of tequila, 1 hour later the patient began vomiting continuously presenting to the emergency department. Patient has not been able to hold any food or fluids down since lunch, claiming he has thrown up everything. Patient complains of bilateral upper abdominal pain which he claims is a 9 out of 10 crampy pain which is exacerbated by the vomiting. Patient has not taken any medications to help symptoms. Patient denies fever, diarrhea, chills, headache. Patient was driven to hospital by sister. Patient denies any abdominal surgeries. Patient denies any shortness of breath or chest pain. Review of Systems: Review of Systems: Constitutional: Denies fever or chills Eyes: Denies redness or eye pain HENT: Denies nasal congestion or sore throat Respiratory: Denies cough or shortness of breath Cardiovascular: Denies chest pain or palpitations GI: Complains of diffuse abdominal pain, nausea, vomiting : Denies dysuria or hematuria Musculoskeletal: Complains of back pain, denies joint pain Integument: Denies rash or skin lesions Neurologic: Denies headache, focal weakness or sensory changes Complete systems were reviewed and found to be within normal limits, except as documented in this note. Heart Score: C/O Chest Pain: N/A Family History: Family History: No relevant family history Current Medications: No medications Allergies: Allergies: Allergies Coded Allergies Type Severity Reaction Last Updated Verified No Known Drug Allergies 12/26/19 No Physical Exam: PE: Constitutional: Well developed, well nourished, no acute distress, non-toxic appearance HENT: Normocephalic, atraumatic Eyes: Bilateral conjunctival hyperemia, denies eye pain, normal extraocular eye motion Neck: Normal range of motion, no tenderness, supple Lungs & Thorax: No respiratory distress, equal chest rise and fall Abdomen: Bilateral upper quadrant abdominal pain to palpation, no pain to palpation in bilateral lower quadrants. Skin: Warm, dry, no erythema, no rash Back: No tenderness, no CVA tenderness Extremities: No tenderness, ROM intact, no edema Neurologic: Alert and oriented X 3, normal motor function, normal sensory function, no focal deficits noted Psychologic: Affect normal, judgment normal Current Patient Data: Vital Signs: Vital Signs Date Time Temp Pulse Resp B/P (MAP) Pulse Ox O2 Delivery O2 Flow Rate FiO2 11/11/20 01:02 97.5 122 24 96 97.5 11/11/20 01:00 123/87 (99) Room Air EKG: EKG: [] Radiology/Procedures: Radiology/Procedures: PROCEDURE: CT ABDOMEN PELVIS WO CONTRAST Abdominal and Pelvis CT, Without Contrast: History: Reason: abdominal pain / Spl. Instructions: / History: Comparison: None. Procedure: Axial images are obtained of the abdomen and pelvis, without IV or oral contrast. Oral Contrast: No Findings: Evaluation of solid organs is limited without contrast. The appendix is normal. The gallbladder is normal. There is mild to moderate wall thickening of the ascending colon without surrounding inflammation. Liver: Normal. Spleen: Normal. Pancreas: Normal. Adrenal Glands: Normal. Kidneys: Normal. There is no free air or free fluid. There is no lymphadenopathy. The urinary bladder appears normal. There is no pericolonic inflammation identified. Impression: Colitis of the ascending colon could be inflammatory such as ulcerative colitis or could be infectious such as pseudomembranous colitis. There is no diverticulitis. There is no air in the wall to suggest ischemic colitis. End impression PQRS Compliance Statement: One or more of the following individualized dose reduction techniques were utilized for this examination: 1. Automated exposure control 2. Adjustment of the mA and/or kV according to patient size 3. Use of iterative reconstruction technique Electronically signed by: Daniel Moon III, MD (11/11/2020 5:12 AM) [facility] Course & Med Decision Making: Course & Med Decision Making 35-year-old male presents emergency department with chief complaint of nausea, vomiting, abdominal pain. This began after patient had seafood and tequila for lunch, 1 hour later patient began vomiting continuously until arriving at the emergency department. Patient attributes upper abdominal pain and back pain to his vomiting. Labs drawn, IV fluids given, pain medication given. Labs showed possible leukocytosis (in the presence of hemoconcentration), mild hyperkalemia, anion gap metabolic acidosis, possible HALINA. CT scan of abdomen and pelvis performed- Colitis of the ascending colon could be inflammatory such as ulcerative colitis or could be infectious such as pseudomembranous colitis. There is no diverticulitis. There is no air in the wall to suggest ischemic colitis. After receiving fluids patient feels a lot better. Because of leukocytosis (even in the face of hemoconcentration) and a CT scan showing colitis- plan is to give patient oral antibiotics outpatient, medication for nausea, pain medication, and instructions to hydrate. Patient was given the option to be admitted and continue treatment or to go home with treatment described above-using shared decision making the patient opted for outpatient treatment. Patient stable for discharge with outpatient follow-up with PCP. Discussed findings and plan with patient, who acknowledges understanding and agreement. Yoel Disclaimer: Yoel Disclaimer: This electronic medical record was generated, in whole or in part, using a voice recognition dictation system. Departure Departure Impression: Primary Impression: Colitis Disposition: HOME / SELF CARE / HOMELESS Condition: STABLE Referrals: NO PCP (PCP) RONDA CALERO MD Patient Instructions: Colitis Scripts Metronidazole (FLAGYL) 500 Mg Tablet 500 MG PO TID for 7 Days, #21 TAB Prov: TEN JUAN DO 11/11/20 Ciprofloxacin Hcl (CIPRO) 500 Mg Tablet 1 TAB PO BID, #14 TAB Prov: TEN JUAN DO 11/11/20 Hyoscyamine Sulfate (LEVSIN-SL) 0.125 Mg Tab.subl 0.125 MG SL Q4-6HRS PRN for PAIN, #14 TAB Prov: TEN JUAN DO 11/11/20 Famotidine (PEPCID) 20 Mg Tablet 20 MG PO BID, #20 TAB Prov: TEN JUAN DO 11/11/20 Ondansetron (ONDANSETRON ODT) 4 Mg Tab.rapdis 1 TAB PO PRN Q6-8HRS PRN for NAUSEA, #16 TAB Prov: TEN JUAN DO 11/11/20 ETN JUAN DO Nov 11, 2020 02:37
[2020-11-11] MEDS: ONDANSETRON PF 4 MG/2 ML VIAL. IVP ONE ×2 (03:05→04:46)
[2020-11-11] MEDS: IV NORMAL SALINE 1000ML BAG 1,000 ML IV SCH (03:05)
[2020-11-11] MEDS: KETOROLAC 15 MG/ML VIAL. IVP ONE (03:06)
[2020-11-11] MEDS: FAMOTIDINE 20 MG/2 ML VIAL IVP ONE (03:06)
[2020-11-11 03:31] LABS: BASO # 0.1 x10^3/uL (0.0-0.2); BASO % 0 % (0-3); EOS % 0 % (0-3); HEMATOCRIT 53.1 % (39.0-53.0); HEMOGLOBIN 18.1 g/dL (13.0-17.5); LYMPH # 1.1 x10^3/uL (1.0-4.8); LYMPH % 6 % (24-48); MEAN CORPUSCULAR HEMOGLOBIN 30 pg (25-35); MEAN CORPUSCULAR HGB CONC 34 g/dL (31-37); MEAN CORPUSCULAR VOLUME 87 fL (79-100); MONO % 5 % (0-9); NEUT # 18.4 x10^3/uL (1.8-7.7); NEUT % 90 % (31-73); PLATELET COUNT 397 x10^3/uL (140-400); RED CELL DISTRIBUTION WIDTH 14.2 % (11.5-14.5); WHITE BLOOD COUNT 20.6 x10^3/uL (4.0-11.0)
[2020-11-11 03:48] LABS: CALCIUM 9.9 mg/dL (8.5-10.1); CREATININE 1.6 mg/dL (0.7-1.3); GFR 49.2; POTASSIUM 5.3 mmol/L (3.5-5.1)
[2020-11-11 03:55] LABS: ALBUMIN 4.8 g/dL (3.4-5.0); ALBUMIN/GLOBULIN RATIO 1.3 (1.0-1.7); MAGNESIUM 2.1 mg/dL (1.8-2.4); TOTAL BILIRUBIN 0.7 mg/dL (0.2-1.0); TOTAL PROTEIN 8.6 g/dL (6.4-8.2)
[2020-11-11 04:18] LABS: BILIRUBIN,URINE NEGATIVE (NEG); CLARITY,URINE CLEAR; COLOR,URINE YELLOW; NITRITE,URINE NEGATIVE (NEG); PROTEIN,URINE 100 mg/dL (NEG-TRACE); UROBILINOGEN,URINE 0.2 mg/dL (0.2 mg/dL)
[2020-11-11 04:31] LABS: BACTERIA,URINE 0 /HPF (0-FEW); HYALINE CASTS, URINE MODERATE /HPF; RBC,URINE 0 /HPF (0-2); WBC,URINE OCC /HPF (0-4)
[2020-11-11] MEDS: IV NORMAL SALINE 1000ML BAG 1,000 ML IV ONE (04:46)
[2020-11-11] MEDS: fentaNYL PF VIAL 100 MCG/2 ML VIAL IVP ONE (04:47)
--- NOTE | 2020-11-11 05:14 | RAD ---
Abdominal and Pelvis CT, Without Contrast: History: Reason: abdominal pain / Spl. Instructions: / History: Comparison: None. Procedure: Axial images are obtained of the abdomen and pelvis, without IV or oral contrast. Oral Contrast: No Findings: Evaluation of solid organs is limited without contrast. The appendix is normal. The gallbladder is normal. There is mild to moderate wall thickening of the ascending colon without surrounding inflammation. Liver: Normal. Spleen: Normal. Pancreas: Normal. Adrenal Glands: Normal. Kidneys: Normal. There is no free air or free fluid. There is no lymphadenopathy. The urinary bladder appears normal. There is no pericolonic inflammation identified. Impression: Colitis of the ascending colon could be inflammatory such as ulcerative colitis or could be infectiou s such as pseudomembranous colitis. There is no diverticulitis. There is no air in the wall to sugges t ischemic colitis. End impression PQRS Compliance Statement: One or more of the following individualized dose reduction techniques were utilized for this examinat ion: 1. Automated exposure control 2. Adjustment of the mA and/or kV according to patient size 3. Use of iterative reconstruction technique Electronically signed by: Daniel Moon III, MD (11/11/2020 5:12 AM) [facility]
[2020-11-11] MEDS ORDERED: HYOS0.1265 SL (06:14)
[2020-11-11] MEDS ORDERED: FAMO-63 PO (06:14)
[2020-11-11] MEDS ORDERED: CIPR500T94 PO (06:14)
[2020-11-11] MEDS ORDERED: METR500T PO (06:14)
[2020-11-11] MEDS ORDERED: ONDA4TAB12 PO (06:14)
[2020-11-11] MEDS: CIPROFLOXACIN HCL 250 MG TABLET. PO ONE (06:26)
[2020-11-11] MEDS: metroNIDAZOLE 500 MG TABLET PO ONE (06:26)
[2020-11-11 07:05] LABS: % ATYL 1 % (0-0); % BANDS 2 % (0-9); % LYMPHS 7 % (24-48); % MONOS 8 % (0-10); % SEGS 82 % (35-66); PLT ESTIMATE ADEQUATE (ADEQUATE)
== END 2020-11-11 06:33 | disposition home or self-care (01) ==
LOC: ER 00:56
DX: K52.9 Noninfective gastroenteritis and colitis, unspecified (principal)
CPT/HCPCS: 36415; 74176; 80053; 81001; 83690; 83735; 85007; 85025; 96361; 96374; 96375; 96376; 99284; J1885; J2405; J3010; J3490; J7030

== ENCOUNTER 2021-01-08 20:44 | Emergency (ER) | payer SELFPAY ==
[~2021-01-08] VITALS: Ht 177.8 cm; Wt 81.0 kg
[~2021-01-08 20:44] MED LIST changes: +CIPR500T94 PO; +FAMO-63 PO; +HYOS0.1265 SL; +METR500T PO; +ONDA4TAB12 PO
[2021-01-08] MEDS ORDERED: FAMOTIDINE 20 MG/2 ML VIAL IVP ONE (21:45)
[2021-01-08] MEDS ORDERED: IV NORMAL SALINE 1000ML BAG 1,000 ML IV SCH (21:45)
[2021-01-08] MEDS ORDERED: ONDANSETRON PF 4 MG/2 ML VIAL. IVP ONE (21:45)
[2021-01-08 21:52] LABS: BASO # 0.1 x10^3/uL (0.0-0.2); BASO % 1 % (0-3); EOS # 0.1 x10^3/uL (0.0-0.7); EOS % 2 % (0-3); HEMATOCRIT 47.1 % (39.0-53.0); HEMOGLOBIN 16.6 g/dL (13.0-17.5); LYMPH # 1.5 x10^3/uL (1.0-4.8); LYMPH % 21 % (24-48); MEAN CORPUSCULAR HEMOGLOBIN 30 pg (25-35); MEAN CORPUSCULAR HGB CONC 35 g/dL (31-37); MEAN CORPUSCULAR VOLUME 86 fL (79-100); MONO # 0.5 x10^3/uL (0.0-1.1); MONO % 7 % (0-9); NEUT # 4.9 x10^3/uL (1.8-7.7); NEUT % 70 % (31-73); PLATELET COUNT 318 x10^3/uL (140-400); RED CELL DISTRIBUTION WIDTH 13.3 % (11.5-14.5); WHITE BLOOD COUNT 7.1 x10^3/uL (4.0-11.0)
[2021-01-08 22:03] LABS: CALCIUM 9.2 mg/dL (8.5-10.1); CREATININE 0.7 mg/dL (0.7-1.3); GFR 127.6; POTASSIUM 4.9 mmol/L (3.5-5.1)
--- NOTE | 2021-01-08 22:06 | PHYS DOC ---
Past Medical History Past Medical History: No Pertinent History, Alcoholism Past Surgical History: No Surgical History Smoking Status: Never Smoker Alcohol Use: Occasionally Drug Use: None General Adult EDM: Chief Complaint: NAUSEA/VOMITING/DIARRHEA HPI: HPI: Patient is a 35 year old male who presents with states today he ate some soup and then took a nap and woke up and he was vomiting. He states he is very nauseated and has slight intermittent upper left abdominal pain. States he has vomited about 10 times since he woke up. Does have a history of alcoholism. Currently denies any pain. Patient denies chest pain, shortness of air, fever, body aches, diarrhea, headache, dizziness, cough, numbness or tingling or focal weakness. Review of Systems: Review of Systems: Constitutional: Denies fever or chills. [] Eyes: Denies change in visual acuity. [] HENT: Denies nasal congestion or sore throat. [] Respiratory: Denies cough or shortness of breath. [] Cardiovascular: Denies chest pain or edema. [] GI: + Intermittent abdominal pain, +nausea, +vomiting, denies bloody stools or diarrhea. [] : Denies dysuria. [] Musculoskeletal: Denies back pain or joint pain. [] Integument: Denies rash. [] Neurologic: Denies headache, focal weakness or sensory changes. [] Endocrine: Denies polyuria or polydipsia. [] Lymphatic: Denies swollen glands. [] Psychiatric: Denies depression or anxiety. [] Heart Score: C/O Chest Pain: No Risk Factors: Risk Factors: DM, Current or recent (<one month) smoker, HTN, HLP, family history of CAD, obesity. Risk Scores: Score 0 - 3: 2.5% MACE over next 6 weeks - Discharge Home Score 4 - 6: 20.3% MACE over next 6 weeks - Admit for Clinical Observation Score 7 - 10: 72.7% MACE over next 6 weeks - Early Invasive Strategies Current Medications: Current Medications Medications (Trade) Dose Ordered Sig/Karen Start Time Stop Time Status Last Admin Dose Admin Famotidine (Pepcid Vial) 20 mg 1X ONCE 01/08/21 21:45 01/08/21 21:46 DC 01/08/21 21:45 20 MG Ondansetron HCl (Zofran) 4 mg 1X ONCE 01/08/21 21:45 01/08/21 21:46 DC 01/08/21 21:45 4 MG Sodium Chloride 1,000 ml @ 1,000 mls/hr Q1H 01/08/21 21:45 01/08/21 22:44 01/08/21 21:45 1,000 MLS/HR Allergies: Allergies: Allergies Coded Allergies Type Severity Reaction Last Updated Verified No Known Drug Allergies 12/26/19 No Physical Exam: PE: Constitutional: Well developed, well nourished, no acute distress, non-toxic appearance. [] HENT: Normocephalic, atraumatic, bilateral external ears normal, oropharynx moist, no oral exudates, nose normal. [] Eyes: PERRLA, EOMI, conjunctiva normal, no discharge. [] Neck: Normal range of motion, no tenderness, supple, no stridor. [] Cardiovascular:Heart rate regular rhythm, no murmur [] Lungs & Thorax: Bilateral breath sounds clear to auscultation [] Abdomen: Bowel sounds normal, soft, no tenderness, no masses, no pulsatile masses. [] Skin: Warm, dry, no erythema, no rash. [] Back: No tenderness, no CVA tenderness. [] Extremities: No tenderness, no cyanosis, no clubbing, ROM intact, no edema. [] Neurologic: Alert and oriented X 3, normal motor function, normal sensory function, no focal deficits noted. [] Psychologic: Affect normal, judgement normal, mood normal. [] Normal physical exam Current Patient Data: Labs: Laboratory Tests Test 01/08/21 21:40 White Blood Count 7.1 x10^3/uL (4.0-11.0) Red Blood Count 5.50 x10^6/uL (4.30-5.70) Hemoglobin 16.6 g/dL (13.0-17.5) Hematocrit 47.1 % (39.0-53.0) Mean Corpuscular Volume 86 fL (79-100) Mean Corpuscular Hemoglobin 30 pg (25-35) Mean Corpuscular Hemoglobin Concent 35 g/dL (31-37) Red Cell Distribution Width 13.3 % (11.5-14.5) Platelet Count 318 x10^3/uL (140-400) Neutrophils (%) (Auto) 70 % (31-73) Lymphocytes (%) (Auto) 21 % (24-48) L Monocytes (%) (Auto) 7 % (0-9) Eosinophils (%) (Auto) 2 % (0-3) Basophils (%) (Auto) 1 % (0-3) Neutrophils # (Auto) 4.9 x10^3/uL (1.8-7.7) Lymphocytes # (Auto) 1.5 x10^3/uL (1.0-4.8) Monocytes # (Auto) 0.5 x10^3/uL (0.0-1.1) Eosinophils # (Auto) 0.1 x10^3/uL (0.0-0.7) Basophils # (Auto) 0.1 x10^3/uL (0.0-0.2) Laboratory Tests 01/08/21 21:40 Vital Signs: Vital Signs Date Time Temp Pulse Resp B/P (MAP) Pulse Ox O2 Delivery O2 Flow Rate FiO2 01/08/21 21:28 98.2 90 16 154/90 (111) 98 Room Air 98.2 EKG: EK read by Dr. Davenport is sinus rhythm and no STEMI Radiology/Procedures: Radiology/Procedures: [] Impression: [facility] [address] [place] [address] IMAGING REPORT Signed PATIENT: SONYA DAMIAN AACCOUNT: [id number] : 1985 LOCATION: ER AGE: 35 SEX: M EXAM STATUS: REG ER ORD. PHYSICIAN: MJ FRAUSTO APRN REASON: vomiting, nausea PROCEDURE: ACUTE ABDOMEN SERIES EXAM: Frontal view of the chest, AP views of the abdomen in upright and supine positions. CLINICAL INDICATION: Reason: vomiting, nausea / Spl. Instructions: / History: COMPARISON: 11/11/2020 FINDINGS and IMPRESSION: The heart is not enlarged. Mediastinal and hilar contours are normal. No focal parenchymal airspace opacity. No pleural effusion or pneumothorax. No abnormal small or large bowel dilatation. Moderate colonic stool content. No abnormal soft tissue mass effect. No suspicious calcifications are seen. No free intraperitoneal gas. Electronically signed by: Stan Coronado MD (01/08/2021 10:47 PM) [facility] DICTATED and SIGNED BY: STAN CORONADO MD DATE: 01/08/21 [id number] Course & Med Decision Making: Course & Med Decision Making Pertinent Labs and Imaging studies reviewed. (See chart for details) See HPI. Alert and oriented x4. Ambulatory with a steady gait. Speaks in full clear sentences. Abdomen is soft and nontender. Skin pink warm and dry. Vital signs are within normal limits. Blood work is unremarkable. Acute abdominal series shows no acute findings. Abdomen remains soft and nontender. No peritoneal signs. Remains afebrile. 2312: Patient is being PO challenged. Patient signed over to Dr Davenport to be followed up on PO Challenge Dragon Disclaimer: Yoel Disclaimer: This electronic medical record was generated, in whole or in part, using a voice recognition dictation system. Departure Departure Impression: Primary Impression: Nausea & vomiting Qualified Codes: R11.2 - Nausea with vomiting, unspecified Disposition: HOME / SELF CARE / HOMELESS Condition: STABLE Referrals: NO PCP (PCP) Patient Instructions: Nausea and Vomiting Additional Instructions: Follow-up with primary care provider if needed. Drink plenty of fluids. If you begin running a fever or have severe abdominal pain or cannot keep down fluids return emergency room. Scripts Ondansetron (ONDANSETRON ODT) 4 Mg Tab.rapdis 1 TAB PO PRN Q6-8HRS, #16 TAB Prov: MJ FRAUSTO APRN 01/08/21 MJ FRAUSTO APRN Jan 08, 2021 22:06
[2021-01-08 22:09] LABS: ALBUMIN/GLOBULIN RATIO 1.2 (1.0-1.7); TOTAL BILIRUBIN 0.9 mg/dL (0.2-1.0); TOTAL PROTEIN 7.3 g/dL (6.4-8.2)
--- NOTE | 2021-01-08 22:49 | RAD ---
EXAM: Frontal view of the chest, AP views of the abdomen in upright and supine positions. CLINICAL INDICATION: Reason: vomiting, nausea / Spl. Instructions: / History: COMPARISON: 11/11/2020 FINDINGS and IMPRESSION: The heart is not enlarged. Mediastinal and hilar contours are normal. No focal parenchymal airspace o pacity. No pleural effusion or pneumothorax. No abnormal small or large bowel dilatation. Moderate colonic stool content. No abnormal soft tissu e mass effect. No suspicious calcifications are seen. No free intraperitoneal gas. Electronically signed by: Stan George MD (01/08/2021 10:47 PM) [facility]
[2021-01-08] MEDS ORDERED: ONDA4TAB12 PO (22:57)
[2021-01-08] MEDS ORDERED: IV NORMAL SALINE 1000ML BAG 1,000 ML IV ONE (23:00)
[2021-01-08] MEDS ORDERED: PROCHLORPERAZINE 10 MG/2 ML VIAL. IV ONE (23:15)
--- NOTE | 2021-01-09 01:35 | EKG ---
[facility] [address] [place] [address] Test Date: 2021-01-08 Test Time: 21:43:51 Pat Name: SONYA DAMIAN Department: Room: Gender: M College Teacher: : 1985 Requested By: MJ FRAUSTO Order Number: [id number] Reading MD: Measurements Intervals [place] Rate: 82 P: 64 CT: 146 QRS: 17 QRSD: 86 T: 24 QT: 356 QTc: 419 Interpretive Statements SINUS RHYTHM NORMAL ECG RI6.02 No previous ECG available for comparison
[2021-01-09 01:47] VITALS: BP 104/58
[2021-01-09 02:29] LABS: BILIRUBIN,URINE NEGATIVE (NEG); CLARITY,URINE CLEAR; COLOR,URINE YELLOW; NITRITE,URINE NEGATIVE (NEG); PH,URINE 7.5 (<5.0-8.0); PROTEIN,URINE NEGATIVE (NEG-TRACE); UROBILINOGEN,URINE 0.2 mg/dL (0.2 mg/dL)
[2021-01-09 02:40] LABS: BACTERIA,URINE 0 /HPF (0-FEW); RBC,URINE 0 /HPF (0-2); WBC,URINE 0 /HPF (0-4)
[2021-01-09 02:41] LABS: AMORPHOUS SEDIMENT,UR PRESENT /HPF
== END 2021-01-09 02:23 | disposition home or self-care (01) ==
LOC: ER 20:44
DX: R11.2 Nausea with vomiting, unspecified (principal); R10.12 Left upper quadrant pain; F10.20 Alcohol dependence, uncomplicated; Y90.9 Presence of alcohol in blood, level not specified
CPT/HCPCS: 36415; 74022; 80053; 81001; 83690; 84484; 85025; 93005; 96361; 96374; 96375; 99285; J0780; J2405; J3490; J7030